=== PATIENT | female | born 1965 | race Caucasian/White ===

== ENCOUNTER → 2017-08-02 | Outpatient (CLI) | payer BC ==
[~2017-08-02] MED LIST: CHOL10008; FERR325T18 PO; MAGN100T2 PO; VITA10002 PO; VITA250T3 PO
[2017-08-02 14:43] LABS: AUTOMATED NEUTROPHIL # 3.6 TH/MM3 (1.8-7.7); BASOPHIL % 0.6 % (0.0-2.0); EOSINOPHIL # 0.2 TH/MM3 (0-0.4); EOSINOPHIL % 3.1 % (0.0-4.0); HEMATOCRIT 41.2 % (35.0-46.0); HEMOGLOBIN 13.5 GM/DL (11.6-15.3); LYMPH % 30.1 % (9.0-44.0); LYMPHOCYTE # 1.9 TH/MM3 (1.0-4.8); MEAN CELL VOLUME 82.8 FL (80.0-100.0); MEAN CORPUSCULAR HEMOGLOBIN 27.1 PG (27.0-34.0); MEAN CORPUSCULAR HGB CONC 32.8 % (32.0-36.0); MEAN PLATELET VOLUME 8.5 FL (7.0-11.0); MONO % 9.4 % (0.0-8.0); MONOCYTE # 0.6 TH/MM3 (0-0.9); NEUT % 56.8 % (16.0-70.0); PLATELET COUNT 233 TH/MM3 (150-450); RED BLOOD COUNT 4.98 MIL/MM3 (4.00-5.30); RED CELL DISTRIBUTION WIDTH 13.3 % (11.6-17.2); WHITE BLOOD COUNT 6.3 TH/MM3 (4.0-11.0)
[2017-08-02 14:45] LABS: BILIRUBIN, URINE NEG (NEG); BLOOD, URINE SMALL (NEG); GLUCOSE,URINE NEG (NEG); KETONE, URINE NEG (NEG); MUCUS URINE FEW /lpf (OCC); NITRITE,URINE NEG (NEG); PH, URINE 6.5 (5.0-8.5); SQUAMOUS EPITHELIAL CELL URINE <1 /hpf (0-5); URINE COLOR YELLOW (YELLW/STRAW); URINE LEUKOCYTE ESTERASE NEG (NEG)
--- NOTE | 2017-08-03 16:04 | EKG ---
Date Performed: 08/02/2017 Time Performed: 14:25:21 PTAGE: 52 years EKG: Sinus rhythm POSSIBLE LEFT ATRIAL ENLARGEMENT NONSPECIFIC T-WAVE ABNORMALITY BORDERLINE ECG NO PREVIOUS TRACING DOCTOR: David Mccray Interpretating Date/Time 08/03/2017 16:01:59
== END ==
LOC: CPRE 14:00
PROVIDERS: ATTEND Obstetrics & Gynecology
DX: Z01.810 Encounter for preprocedural cardiovascular examination (principal); Z01.812 Encounter for preprocedural laboratory examination; N95.0 Postmenopausal bleeding; D25.9 Leiomyoma of uterus, unspecified; R94.31 Abnormal electrocardiogram [ECG] [EKG]
CPT/HCPCS: 36415; 81001; 85025; 93005

== ENCOUNTER → 2017-08-06 | Day surgery (SDC) | payer BC ==
--- NOTE | 2017-08-05 21:16 | MH ---
cc: Rubén Ragland MD DATE OF ADMISSION: 08/06/2017 ADMITTING DIAGNOSIS: Post-menopausal bleeding. HISTORY OF PRESENT ILLNESS: The patient is a 52-year-old , female, para 0, with an LMP in 02/2015. She returned for annual visit on 04/27/2017 reporting spotting in 2015 and again in 03/2017. Her laboratory studies were normal. Her Pap smear was normal. An ultrasound of the pelvis in 04/2017 showed a uterus that measured 9.2 cm, endometrium 10 mm. Ovaries appeared normal. Uterus appeared to be heterogeneous. There was a small cyst on the left ovary. She is now admitted for surgical evaluation. PAST HISTORY: In 2011 she had right elbow ligament repair. MEDICATIONS: None. ALLERGIES: NONE. TRANSFUSIONS: None. OBSTETRIC HISTORY: None. SOCIAL HISTORY: She is employed, [employer], , same sex partner. Alcohol occasional. Tobacco none. Drugs none. FAMILY HISTORY: Noncontributory. PHYSICAL EXAMINATION: GENERAL: A well-nourished, well-developed, [place] female. Her weight was 163 pounds. HEENT: Normal. CHEST: Clear. HEART: Regular rate. BREASTS: Symmetrical. ABDOMEN: Benign. PELVIC: Normal external genitalia and BUS. Vagina is normal. Cervix normal. Uterus enlarged, about 14-week size. Adnexa nonpalpable. ASSESSMENT: As above, she is now admitted for outpatient hysteroscopy and dilatation and curettage. While in the office I explained the procedures, the risks and benefits and complications. The patient would like to proceed. Rubén Ragland MD JAW/rt , 08:58 PM , 09:14 PM MIRELA
[~2017-08-06] VITALS: Ht 167.6 cm; Wt 79.6 kg
[~2017-08-06] MED LIST changes: +ACETAMINOPHEN 1000 MG/100 ML 100 ML IV SCH; +CHLORHEXIDINE GLUCONATE 2 % 1 PACK (2 CLOTHS) TOPICAL PRN; +CIPROFLOXACIN 400 MG PREMIX 200 ML ONE; +DEXAMETHASONE SOD PHOS 4 MG/ML VIAL IV ONE; +DO NOT ADM ANY ANTICOAGULANT DRUGS PRN; +KETOROLAC TROMETHAMINE 30 MG/ML (IVP) VIAL IV PUSH ONE; +LACTATED RINGER'S 1000 ML IV PRN; +LIDOCAINE HCL 1% PF 5 ML SYRINGE OTHER ONE; +METOCLOPRAMIDE HCL 10 MG/2 ML VIAL IV PRN; +METOPROLOL TARTRATE 25 MG TAB PO PRN; +MIDAZOLAM HCL 2 MG/2 ML VIAL ONE; +ONDANSETRON HCL 4 MG/2 ML VIAL IV ONE; +POVIDONE IODINE 5% (ANTISEPSIS KIT) 4 APPLICATIONS EACH NARE PRN; +PROPOFOL 200 MG/20 ML AMP IV ONE; +SODIUM CHLORID 0.9% 500 ML IV PRN; +oxyCODONE/ACETAMINOPHEN 5 MG/325 MG TAB PO PRN
--- NOTE | 2017-08-06 09:09 | MP ---
cc: Rubén Ragland MD DATE OF OPERATION: 08/06/2017 PREOPERATIVE DIAGNOSES: 1. Postmenopausal bleeding. 2. Uterine fibroids. POSTOPERATIVE DIAGNOSES: 1. Postmenopausal bleeding. 1. Uterine fibroids. DETAILS OF PROCEDURE: Hysteroscopy, D and C. ANESTHESIA: General LMA. ESTIMATED BLOOD LOSS: Less than 20 mL. FLUIDS \ 200 mL crystalloid. OBJECTIVE FINDINGS: Following the induction of adequate general LMA anesthesia, the patient was prepped and draped supine on the operating table in dorsal lithotomy position in a sterile fashion with the bladder being drained by in and out catheterization. Exam under anesthesia revealed about a [id number] anterior uterus with fibroids. A heavy weighted speculum was placed on the posterior fornix of the vagina, the anterior lip of the cervix grasped with single-tooth tenaculum. The cervix and uterus sounded to 9 cm. The cervix was then dilated to a #18 Hanks dilator. Hysteroscope was passed, revealed normal endocervix and submucosal fibroids. The scope was now withdrawn, endocervical curettings obtained with a small serrated curet, the endometrium with a small sharp curet and polyp forceps passed to chart picker loose tissue and debris. The cervical tenaculum sites were sutured with 2-0 chromic for hemostasis. All instruments remove, all counts correct. The patient's legs were taken down from the stirrups and she was awakened and taken to the recovery room in good condition. MD PANCHO Graham/SB , 08:18 AM , 09:07 AM
[2017-08-06 09:51] VITALS: BP 130/70; PULSE 68; RESP 18; TEMP 97.6; O2SAT 99
== END | disposition home or self-care (01) ==
LOC: HSDC 05:36
PROVIDERS: ATTEND Obstetrics & Gynecology
DX: N95.0 Postmenopausal bleeding (principal); D25.0 Submucous leiomyoma of uterus
CPT/HCPCS: 00952; 58558; 88305; J0131; J0744; J1100; J1885; J2250; J2405; J3010; J7120